=== PATIENT | female | born 1975 | race Caucasian/White ===

== ENCOUNTER → 2017-02-26 | Outpatient (CLI) | payer OTHER ==
[~2017-02-26] MED LIST: FERR143T5 PO
== END | disposition home or self-care (01) ==
LOC: C.PAPS 17:33
PROVIDERS: ATTEND Obstetrics & Gynecology
DX: Z01.419 Encounter for gynecological examination (general) (routine) without abnormal findings (principal)

== ENCOUNTER → 2017-09-24 | Outpatient (CLI) | payer OTHER ==
--- NOTE | 2017-09-27 07:50 | MAMMOGRAPHY REPORT ---
BILATERAL DIGITAL SCREENING MAMMOGRAM TOMOSYNTHESIS WITH CAD: 09/24/2017 CLINICAL HISTORY: Routine screening. Patient has no complaints. TECHNIQUE: Breast tomosynthesis in addition to standard 2D mammography was performed. Current study was also evaluated with a Computer Aided Detection (CAD) system. COMPARISON: Comparison is made to exams dated: 09/11/2016 mammogram, 09/05/2015 mammogram, 08/30/2014 mammogram, and 06/09/2013 mammogram - [facility]. BREAST COMPOSITION: The tissue of both breasts is extremely dense, which lowers the sensitivity of m ammography. FINDINGS: There are multiple scattered bilateral groupings of benign-appearing round and punctate mi crocalcifications. No suspicious mass, architectural distortion or cluster of new, suspicious microca lcifications is seen. IMPRESSION: ACR BI-RADS CATEGORY 2: BENIGN There is no mammographic evidence of malignancy. A 1 year screening mammogram is recommended. The pa tient will receive written notification of the results. Approximately 10% of breast cancers are not detected with mammography. A negative mammographic report should not delay biopsy if a clinically suggestive mass is present. Jeannette Eid M.D. ay/:09/25/2017 08:03:49 Auditor/Quality: Carmel COLLAZO(Adi)(Karina), [facility] letter sent: Normal 1/2 BI-RADS Code: ACR BI-RADS Category 2: Benign
== END | disposition home or self-care (01) ==
LOC: C.MAMM 13:28
PROVIDERS: ATTEND Obstetrics & Gynecology
DX: Z12.31 Encounter for screening mammogram for malignant neoplasm of breast (principal)

== ENCOUNTER → 2017-10-04 | Day surgery (SDC) | payer OTHER, SELFPAY ==
[2017-09-21 10:05] VITALS: BMI 24.0
[2017-09-21 11:14] LABS: BASO % 0.2 %; BASO ABS # 0.01 K/uL (0-0.2); COMPLETE YES; EOS % 2.5 %; HEMATOCRIT 33.2 % (37-47); LYMPH ABS # 1.63 K/uL (1.2-3.4); MEAN CELL VOLUME 93.3 fL (80-100); MEAN CORPUSCULAR HEMOGLOBIN 31.2 pg (25-34); MEAN CORPUSCULAR HGB CONC 33.4 g/dl (32-36); MEAN PLATELET VOLUME 9.7 fL (7.4-10.4); MONO % 10.3 %; PLATELET COUNT 242 K/uL (130-400); RED BLOOD COUNT 3.56 M/uL (4.2-5.4); WHITE BLOOD COUNT 4.07 K/uL (4.8-10.8)
[2017-09-21 11:23] LABS: PARTIAL THROMBOPLASTIN RATIO 1.1; PROTHROMBIN TIME (PATIENT) 10.8 SECONDS (9.0-12.0)
[2017-09-21 13:42] LABS: BUN/CREATININE RATIO 27.8 (10-20); CALCIUM 8.5 mg/dl (8.5-10.1); CREATININE 0.77 mg/dl (0.60-1.20); POTASSIUM 3.5 mmol/L (3.5-5.1)
[~2017-10-04] VITALS: Ht 149.9 cm; Wt 55.4 kg
[~2017-10-04] MED LIST changes: +ACETAMINOPHEN 1000 MG/100 ML IV IV ONE; +ACETAMINOPHEN 325 MG TAB PO PRN; +ATROPINE SULFATE 0.1 MG/ML 5ML SYR IV PRN; +BACITRACIN 50000 UNIT VIAL ONE; +BUPIVACAINE 0.25% 30 ML VIAL ONE; +CEFAZOLIN 2000MG IV PUSH 10 ML IV SCH; +CEFAZOLIN SOD 1 GM VIAL ONE; +CISATRACURIUM BESYLATE IV SOLN 2 MG/ML 10 ML VIAL ONE; +DEXAMETHASONE SOD INJ 4 MG/ML VIAL ONE; +EpHEDrine SULFATE 50MG/5ML SYR ONE; +EpHEDrine SULFATE INJ 50 MG/ML AMP IV PRN; +EpINEphrine INJ 1MG/ML AMP 1 MG/ML AMP ONE; +FENTANYL CITRATE INJ 50 MCG/1 ML 2 ML VIAL ONE; +FLUMAZENIL 0.1 MG/1 ML 10 ML VIAL IV PRN; +GENTAMICIN SULFATE 40 MG/ML 2 ML VIAL ONE; +GLYCOPYRROLATE INJ 0.2 MG/ML VIAL ONE; +HYDROmorphone INJ 2 MG/ML SYR/VIAL ONE; +LACTATED RINGER'S 1000ML 1,000 ML IV SCH; +LARYING-O-JET KIT (LTA) ONE; +LIDOCAINE HCL 1% 20 ML VIAL ONE; +LIDOCAINE HCL 2% 2 ML VIAL (20MG/ML) ONE; +LIDOCAINE/EPINEPHRINE 1% 20 ML VIAL ONE; +METOCLOPRAMIDE HCL INJ 5 MG/ML 2 ML VIAL IV PRN; +MIDAZOLAM HCL 1 MG/ML 2ML VIAL ONE; +NALOXONE HCL 0.4 MG/1 ML VIAL/CARP IV PRN; +NEOSTIGMINE METHYLSULFATE 5 MG/5 ML SYR ONE; +ONDANSETRON INJ 2 MG/ML 2 ML VIAL IV PRN; +ONDANSETRON INJ 2 MG/ML 2 ML VIAL ONE; +OXYCODONE/ACETAMINOPHEN 5-325 TAB PO PRN; +PHENYLEPHRINE 100MCG/ML 5ML SYR ONE; +PROMETHAZINE HCL INJ 12.5 MG in SODIUM CHLORIDE 0.9% 50ML 50 ML IV PRN; +PROPOFOL IV EMULSION 10 MG/ML 20 ML VIAL IV ONE; +SODIUM CHLORIDE 0.9% 1000ML 1,000 ML IV SCH
[2017-10-04 09:30] VITALS: BP 98/44; PULSE 60; TEMP 36.8; O2SAT 100; Ht 149.9 cm; Wt 55.4 kg
--- NOTE | 2017-10-04 09:52 | History & Physical Bridge Note ---
H&P Re-Evaluation Bridge Note: I have examined the patient, reviewed the History & Physical and in the interval since the performance of the History & Physical I have noted the following changes of clinical significance: Mammogram done, normal.
--- NOTE | 2017-10-04 15:13 | [facility] Post Operative Brief Note ---
Immediate Operative Summary Operative Date Oct 04, 2017. Pre-Operative Diagnosis Encounter for cosmetic surgery Post-Operative Diagnosis Same as preop Procedure(s) Performed Abdominoplasty and Bilateral Breast Augmentation with Silicone Breast Implants Surgeon Dr. Tee [employer]ricator Surgeon(s) Landen Ziegler PA-C Estimated Blood Loss 50 cc Findings none Specimens None, as per surgeon Drains FUAD x2 Anesthesia GET Complication(s) None Disposition Recovery Room / PACU
--- NOTE | 2017-10-04 15:18 | Discharge Instructions ---
Discharge Instructions Date of Service Oct 04, 2017. Admission Reason for Admission: Encounter For Cosmetic Surgery Z24.1 Discharge Discharge Diagnosis / Problem: cosmetic surgery Discharge Goals Goal(s): Decrease discomfort, Improve function Activity Recommendations Activity Limitations: per Instructions/Follow-up section ACTIVITY RECOMMENDATIONS: __Normal activities _x_No bending, lifting or straining. DO not stand or lay straight until comfortable. This may take a week. _x_No driving __Driving allowed when you are off pain medications _x_Walking permitted. Get up and walk tonight, being careful not to stand straight or overdue it. Walking to the bathroom is fine! __You should have help at home for ___ days DRESSINGS: __No dressings required _x_Keep dressings dry/in place until first office visit __Remove dressings ___ and leave dressings off _x_Apply ice _2__ days to the BREASTS ONLY. __Remove dressings and reapply garment __Apply antibiotic ointment (Bacitracin, Neosporin, etc) to wounds 3-4 times/ day for 10 days BATHING: _x_Keep dressings dry _x_Sponge bathing permitted away from your incisions __Showering permitted x__No swimming, hot tubs or soaking in a tub MEDICATIONS: Resume previous medications unless instructed otherwise by your surgeon. _x_Do not use aspirin, Motrin, Advil or Ibuprofen as these may promote bleeding. Please use Tylenol. _x_Prescription(s) provided: pain medication and antibiotics were provided at your last office visit OTHER INSTRUCTIONS: _x_Record drain output 2-3 times per day. Call the office when drain output is 10cc/24 hours per drain. One drain may come out before the other drain. SPECIAL CARE INSTRUCTIONS: * It is normal to have a mild fever after surgery. If your temperature is higher than 101.5 degrees F, please call the office at [phone]. * Constipation is a typical side effect of pain medication. An over-the- counter stool softener will help relieve this. * Leaking around surgical drains may occur and should not cause concern. Sometimes these drains become clogged. If this happens, remove the bulb and milk the clot out of the tube, then replace the bulb. * Drainage from wounds after liposuction is normal and should be expected. Garments will become soiled. You should protect furniture and bedding. This drainage should mostly subside within 2-3 days. Leave garments in place unless instructed to remove them. * If you have unusual drainage from a wound or are concerned you have an infection or have any questions or concerns, please call the office at [phone]. FOLLOW UP VISIT: If not already scheduled, please call the office, , when you return home after surgery to schedule an appointment to be seen in _2__ days. . Current Hospital Diet Patient's current hospital diet: Discharge Diet Recommended Diet: Regular Diet Procedures Procedures Performed: Abdominoplasty and Bilateral Breast Augmentation with Silicone Breast Implants Pending Studies Studies pending at discharge: no Medical Emergencies . Who to Call and When: Medical Emergencies: If at any time you feel your situation is an emergency, please call 911 immediately. . Non-Emergent Contact Non-Emergency issues call your: Primary Care Provider, Surgeon . "Provider Documentation" section prepared by Amaya Ziegler. . VTE Core Measure Inpt VTE Proph given/why not?: SCD's [place] Drug Monitoring Program Search Results: no issues identified
[2017-10-04] MEDS: FENTANYL CITRATE INJ 50 MCG/1 ML 2 ML VIAL IV PRN ×4 (15:53→16:09)
--- NOTE | 2017-10-04 16:19 | Anesthesiology Progress Note ---
Anesthesia Post Op Note Date & Time Oct 04, 2017 at 16:19 Vital Signs Pain Intensity: 4 Vital Signs Past 12 Hours Date Time Temp Pulse Resp B/P (MAP) Pulse Ox O2 Delivery O2 Flow Rate FiO2 10/04/17 16:10 55 16 98/53 97 Room Air 10/04/17 16:00 56 16 91/57 99 Room Air 10/04/17 15:50 55 16 112/56 100 Oxymask 2 10/04/17 15:40 56 16 106/58 100 Oxymask 5 10/04/17 15:34 36.2 57 16 96/51 100 Oxymask 10 10/04/17 09:30 36.8 60 18 98/44 (62) 100 Room Air Notes Mental Status: alert / awake / arousable, participated in evaluation Pt Amnestic to Procedure: Yes Nausea / Vomiting: adequately controlled Pain: adequately controlled Airway Patency, RR, SpO2: stable & adequate BP & HR: stable & adequate Hydration State: stable & adequate Anesthetic Complications: no major complications apparent
[2017-10-04 16:55] VITALS: BP 99/47; PULSE 66; TEMP 36.5; O2SAT 95
[2017-10-04 17:25] VITALS: BP 93/46; PULSE 65; TEMP 36.5; O2SAT 97
--- NOTE | 2017-10-04 18:26 | OPERATIVE REPORT ---
DATE OF OPERATION: 10/04/2017 PREOPERATIVE DIAGNOSES: Hypomastia and abdominal lipodystrophy, desiring cosmetic improvement. POSTOPERATIVE DIAGNOSES: Same. PROCEDURE: Bilateral breast augmentation with silicone implants and abdominoplasty. SURGEON: Dr. Joann Tee. SMALL PARTS SHAPER OPERATOR: Aamya Ziegler PA-C. ANESTHESIA: General. COMPLICATIONS: None. INDICATION FOR THE PROCEDURE: The patient is a 42-year-old female who presented to my office for a second consultation regarding breast augmentation and improvement in her abdominal wall contour. Options were discussed and she was interested in having a "Gummy Bear" implant placed. We discussed the breast augmentation using Natrelle Inspira soft touch implants and performing abdominoplasty with rectus plication. BRIEF DESCRIPTION OF THE PROCEDURE: The risks, benefits, and alternatives of the procedure were explained to the patient, who agreed and signed consent. She was identified and marked in the preoperative holding area. She was brought to the operating room, where she was positioned supine and placed under general anesthesia without incident. Surgical site was prepped and draped sterilely. A time-out procedure was performed. I began with the breast augmentation portion of the procedure. Tegaderms were placed as a barrier over the nipple-areolar complexes bilaterally. The access incision was marked in the inframammary fold using the medial border of the areole as the medial most aspect of the incision. 1% lidocaine with epinephrine was used to anesthetize the planned incision as well as the breast parenchyma. A 15 blade scalpel was used to make the incision through the skin into the underlying dermis. The incision was deepened using electrocautery through subcutaneous fat and breast parenchyma. The pectoralis fascia was identified and the breast was dissected in the subglandular plane up to the superior border of the nipple-areolar complex to facilitate dual plane 3 type augmentation. Once this was accomplished and hemostasis was achieved, the lateral border of the pectoralis major muscle was identified and elevated. A retropectoral pocket was placed using a lighted retractor and electrocautery. Dissection was first performed superiorly and laterally and then dissection was carried medially along the inframammary fold and the pectoralis major muscle fibers were divided using electrocautery, leaving the pectoralis fascia intact along the inframammary fold. The small tendinous attachments medially were divided using electrocautery, leaving the origin of the pectoralis intact along the sternum. Once I was satisfied with the pocket placement, hemostasis was achieved with electrocautery. On the left side, there was a fairly significant muscle bleeder along the inframammary fold, which was able to be controlled with cautery. Because of this, the pocket was copiously irrigated with normal saline. In the office preoperatively, we discussed implant size and she had been interested in approximately 350-mL implant. I selected a 340-mL extra full profile implant, which I placed into the pocket. While the wound was able to be closed, it created a very overflow upper pole with a nipple-areolar complex that was going to be too low on the breast mound. I therefore attempted to place a 325-mL sizer and this achieved our desired cosmetic result. The sizer was removed and the pocket was irrigated with triple antibiotic irrigation. 0.25% Marcaine plain was instilled into the pocket and an antibiotic-soaked lap sponge was placed while attention was turned to the right side. An identical procedure was carried on the right side. Once I was satisfied with the shape and pocket size of both breasts, both pockets were again inspected for hemostasis and again irrigated with triple antibiotic irrigation. Gloves were changed, all instruments were wiped down and I selected a 325-mL Natrelle Inspira soft touch breast implant, style SSS, which was then placed into the left breast pocket. Position was checked and implant was placed inferiorly as much as possible along the inframammary fold. The superficial fascia was reapproximated using 2-0 Vicryl interrupted sutures, followed by approximation of the deep dermis using 2-0 Vicryl suture, approximation of the superficial dermis using 3-0 PDS suture and closure of the incision using 3-0 Monocryl running subcuticular suture. Identical implant was selected for the right side and closure was performed in similar fashion. Dermabond was applied to both incisions. Subsequent to this, attention was turned to the abdominoplasty portion of the procedure. Planned incision was reevaluated and marked. This was designed to incorporate her prior scar. 1% lidocaine with epinephrine was used to anesthetize the planned incision. A 15 blade scalpel made the incision through skin and into underlying dermis. The incision was deepened using electrocautery down to abdominal wall fascia. Dissection was then carried cephalad along the rectus fascia up to the level of the umbilicus. A significant rectus diastasis was identified in both infraumbilically and supraumbilically. The umbilicus was circumscribed using a 15 blade scalpel and the abdominal skin flap was divided using electrocautery up to the level of the umbilicus. The umbilicus was dissected using electrocautery and the dissection was performed widely up to the level of the umbilicus and then narrowed down superior to the umbilicus and was carried up to the xiphoid process. Hemostasis was achieved throughout using electrocautery. 0 Prolene [id number] sutures were used to perform a rectus plication both infraumbilically and supraumbilically. 0 Prolene running stitch was then used to reinforce this repair of the diastasis. This was also performed superior to the umbilicus. At this point, additional adjustments were made using electrocautery to slightly widen the dissection and improve the contour. The bed was flexed and the upper abdominal skin flap was approximated along the mons pubis. Minimal elevation of the mons pubis was performed due to a slightly depressed area inferior to her section scar. The upper abdominal skin flap was tacked into place using 2-0 Vicryl suture in the midline. Prior to doing this, 0.25% Marcaine plain was injected into the rectus fascia. Following placement a tacking suture, the skin flaps were marked for excision. This was performed using 15 blade scalpel to make the skin incision and deepened full thickness using electrocautery. This was performed first on the left and then on the right side. Once hemostasis was achieved, two 15-Moroc[place] Jerome drains were placed and brought out through separate stab incisions. The location of the umbilicus was marked and wound closure was begun using 2-0 Vicryl Will's fascia sutures, 2-0 Vicryl deep dermal sutures, 2-0 PDO superficial dermal suture and 3-0 Monocryl running subcuticular suture. The umbilical incision was then marked and created using an inverted triangular incision. This was made using a 15 blade scalpel and deepened full thickness using electrocautery. This tissue was discarded. The umbilical stalk was then delivered through the incision and inset using 4-0 chromic half buried horizontal and half buried vertical mattress sutures. Drains were sutured into place using 3-0 nylon drain stitches. Dermabond Prineo was applied to the abdominal incision and the umbilicus was packed using Xeroform. Dry dressings and a surgical bra and binder were placed. The patient was awakened and transferred to recovery room in satisfactory condition. I attest to the content of the Intraoperative Record and any orders documented therein. Any exception s are noted below.
[2017-10-04 18:30] VITALS: BP 93/46; PULSE 72; TEMP 36.2; O2SAT 99
== END | disposition home or self-care (01) ==
LOC: C.ACU 09:07
PROVIDERS: ATTEND Plastic Surgery
DX: N64.82 Hypoplasia of breast (principal); E88.1 Lipodystrophy, not elsewhere classified; Z41.1 Encounter for cosmetic surgery; Z88.1 Allergy status to other antibiotic agents; Z91.040 Latex allergy status; Z85.820 Personal history of malignant melanoma of skin; Z88.2 Allergy status to sulfonamides